=== PATIENT | male | born 1955 | race Caucasian/White ===

== ENCOUNTER 2020-07-24 00:07 | Emergency (ER) | payer BC ==
[2020-07-24] MEDS ORDERED: GI Cocktail Oral Solution 30 ML PO ONE (00:44)
[2020-07-24 00:54] LABS: ANION GAP 12.1 mEq/L (7-13); CHLORIDE,CL 101 mmol/L (98-107); SODIUM,NA 139 mmol/L (136-145)
[2020-07-24] MEDS ORDERED: HYDROmorphone 0.5 MG/0.5 ML Syringe IVPUSH ONE (01:00)
--- NOTE | 2020-07-24 01:05 | EDM.PDOC ---
ED HPI GENERAL MEDICAL PROBLEM - General Chief Complaint: Abdominal Pain Stated Complaint: HEART ATTACK Time Seen by Provider: 07/24/20 01:01 Source of Information: Reports: Patient History Limitations: Reports: No Limitations - History of Present Illness INITIAL COMMENTS - FREE TEXT/NARRATIVE: onset epigastric pain 4pm today while driving back from [employer], did eat [employer] prior, did have similar pain few months ago but went away after hour. Epigastric Pain Score (Numeric/FACES): 9 - Related Data Allergies Allergy/AdvReac Type Severity Reaction Status Date / Time No Known Allergies Allergy Verified 07/24/20 00:21 Past Medical History Cardiovascular History: Reports: High Cholesterol, Hypertension Gastrointestinal History: Reports: GERD - Past Surgical History GI Surgical History: Reports: Appendectomy, Hernia Repair/Other Social & Family History - Tobacco Use Tobacco Use Status *Q: Never Tobacco User Second Hand Smoke Exposure: No - Recreational Drug Use Recreational Drug Use: No ED ROS GENERAL - Review of Systems Review Of Systems: Comprehensive ROS is negative, except as noted in HPI. ED EXAM, GI/ABD - Physical Exam Exam: See Below Exam Limited By: No Limitations General Appearance: Alert, WD/WN, Mild Distress, Moderate Distress, Other (pain). No: Active Emesis Ears: Hearing Grossly Normal Throat/Mouth: Normal Voice, No Airway Compromise Head: Atraumatic Neck: Non-Tender, Full Range of Motion Respiratory/Chest: No Respiratory Distress Cardiovascular: Regular Rate, Rhythm GI/Abdominal Exam: Guarding, Tender, Other (epiG regiom). No: Distended, Rigid, Rebound (Male) Exam: Deferred Rectal (Males) Exam: Deferred Neurological: Alert, Oriented, Normal Cognition, No Motor/Sensory Deficits Psychiatric: Tearful Skin Exam: Warm, Dry, Normal Color Lymphatic: No Adenopathy Course - Vital Signs Last Recorded V/S: Last Vital Signs Temp 35 C L 07/24/20 00:08 Pulse 66 07/24/20 00:08 Resp 18 07/24/20 00:08 BP 158/96 H 07/24/20 00:08 Pulse Ox 100 07/24/20 00:08 - Orders/Labs/Meds Orders: Active Orders 24 hr Category Date Time Status EKG 12 Lead [EKG Documentation Completion] [RC] STAT Care 07/24/20 00:18 Active Labs: Laboratory Tests 07/24/20 07/24/20 07/24/20 Range/Units 00:25 00:25 00:25 WBC 15.7 H (5.0-10.0) 10^3/uL RBC 5.51 (4.6-6.2) 10^6/uL Hgb 17.0 (14.0-18.0) g/dL Hct 47.6 (40.0-54.0) % MCV 86.4 (80-100) fL MCH 30.9 (27.0-34.0) pg MCHC 35.7 H (33.0-35.0) g/dL Plt Count 231 (150-450) 10^3/uL Neut % (Auto) 77.1 H (42.2-75.2) % Lymph % (Auto) 16.1 L (20.5-50.1) % Storey % (Auto) 5.7 (2-8) % Eos % (Auto) 1.0 (1.0-3.0) % Baso % (Auto) 0.1 (0.0-1.0) % Sodium 139 (136-145) mmol/L Potassium 3.1 L (3.5-5.1) mmol/L Chloride 101 (98-107) mmol/L Carbon Dioxide 29 (21-32) mmol/L Anion Gap 12.1 (7-13) mEq/L BUN 21 H (7-18) mg/dL Creatinine 1.37 H (0.70-1.30) mg/dL Est Cr Clr Drug Dosing 55.19 mL/min Estimated GFR (MDRD) 52 BUN/Creatinine Ratio 15.3 (No establ ref range) Glucose 200 H (74-99) mg/dL Calcium 8.8 (8.5-10.1) mg/dL Total Bilirubin 1.3 H (0.2-1.0) mg/dL AST 165 H (15-37) U/L ALT 104 H (16-63) U/L Alkaline Phosphatase 69 (46-116) U/L Troponin I < 0.017 (0.000-0.056) ng/mL Total Protein 7.2 (6.4-8.2) g/dL Albumin 3.9 (3.4-5.0) g/dL Globulin 3.3 Albumin/Globulin Ratio 1.2 Amylase 1306 H (25-115) U/L Lipase 8709 H (73-393) U/L Ethyl Alcohol < 3 (0) mg/dL Meds: Medications Discontinued Medications Generic Name Dose Route Start Last Admin Trade Name Nina PRN Reason Stop Dose Admin Al Hydroxide/Mg Hydroxide 30 ml 07/24/20 00:44 07/24/20 00:51 Gi Cocktail PO 07/24/20 00:45 30 ml ONETIME ONE Administration Hydromorphone HCl 0.5 mg 07/24/20 01:00 07/24/20 01:08 Dilaudid IVPUSH 07/24/20 01:01 0.5 mg ONETIME ONE Administration Hydromorphone HCl 1 mg 07/24/20 03:01 Dilaudid IVPUSH 07/24/20 03:02 ONETIME ONE Ondansetron HCl 4 mg 07/24/20 01:18 07/24/20 01:27 Zofran IVPUSH 07/24/20 01:19 4 mg ONETIME ONE Administration - Re-Assessments/Exams Free Text/Narrative Re-Assessment/Exam: 07/24/20 03:[address] Vargas @ [facility] who kindly accepted pt. Departure - Departure Time of Disposition: 03:06 Disposition: DC/Tfer to Acute Hospital 02 Condition: Good Clinical Impression: Abdominal pain Qualifiers: Abdominal location: epigastric Qualified Code(s): R10.13 - Epigastric pain Pancreatitis Qualifiers: Chronicity: acute Pancreatitis type: unspecified pancreatitis type Acute pancreatitis complication: unspecified Qualified Code(s): K85.90 - Acute pancreatitis without necrosis or infection, unspecified - Discharge Information Forms: Interfacility Transfer [facility] Sepsis Event Note (ED) - Evaluation Sepsis Screening Result: No Definite Risk - Focused Exam Vital Signs: Vital Signs Temp Pulse Resp BP Pulse Ox 07/24/20 00:08 35 C L 66 18 158/96 H 100 - My Orders Last 24 Hours: My Active Orders 07/24/20 00:18 EKG 12 Lead [EKG Documentation Completion] [RC] STAT - Assessment/Plan Last 24 Hours: My Active Orders 07/24/20 00:18 EKG 12 Lead [EKG Documentation Completion] [RC] STAT
[2020-07-24] MEDS ORDERED: Ondansetron 4 MG/2 ML SDV IVPUSH ONE (01:18)
--- NOTE | 2020-07-24 02:25 | CT ---
PROCEDURE INFORMATION: Exam: CT Abdomen Without Contrast Exam date and time: 07/24/2020 1:06 AM Age: 65 years old Clinical indication: Other: Elevated creatnine; Additional info: Epigastric pain, high wbc 15,700 TECHNIQUE: Imaging protocol: Computed tomography images of the abdomen without contrast. Radiation optimization: All CT scans at this facility use at least one of these dose optimization techniques: automated exposure control; mA and/or kV adjustment per patient size (includes targeted exams where dose is matched to clinical indication); or iterative reconstruction. COMPARISON: No relevant prior studies available. FINDINGS: Lungs: Mild hypoventilatory changes in the dependent lungs bilaterally. Liver: 2.0 cm hepatic cysts. Gallbladder and bile ducts: Pericholecystic fluid/pericholecystic edema. Pancreas: There is moderate diffuse peripancreatic inflammatory stranding and fluid. Spleen: Normal. No splenomegaly. Adrenals: Normal. No mass. Kidneys and ureters: Normal. No hydronephrosis. Stomach and bowel: Few scattered sigmoid diverticuli without diverticulitis. Intraperitoneal space: Unremarkable. No free air. No significant fluid collection. Lymph nodes: Unremarkable. No enlarged lymph nodes. Vasculature: The aorta demonstrates mild atherosclerotic calcification. Bones/joints: Mild multilevel degenerative disc disease. Soft tissues: Bilateral fat containing inguinal herniations, right greater than left with no CT evidence for incarceration. IMPRESSION: 1. Moderate changes of acute pancreatitis as described above. 2. Pericholecystic fluid/edema.
[2020-07-24] MEDS ORDERED: HYDROmorphone 1 MG/ML Syringe IVPUSH ONE (03:01)
== END 2020-07-24 03:33 ==
LOC: DL.ED 00:07
DX: K85.90 Acute pancreatitis without necrosis or infection, unspecified (principal)
CPT/HCPCS: 36415; 74176; 80053; 80307; 82150; 83690; 84484; 85025; 93005; 96374; 96375; 96376; 99285; A9270; J1170; J2405; 74150; 93010; 99283